=== PATIENT | male | born 1995 | race Caucasian/White ===

== ENCOUNTER 2017-01-25 00:43 | Emergency (ER) | payer OTHER ==
[2017-01-25 01:32] VITALS: BP 147/82; PULSE 98; RESP 18; TEMP 98.8; O2SAT 99
--- NOTE | 2017-01-25 02:00 | ED PDOC ---
HPI: Skin/Bite Injury Time Seen by Provider: 01/25/17 01:24 Chief Complaint (Nursing): Abnormal Skin Integrity Chief Complaint (Provider): Bump with bleeding, left scalp History Per: Patient History/Exam Limitations: no limitations Onset/Duration Of Symptoms: Days (1) Current Symptoms Are (Timing): Still Present Quality Of Symptoms: Painful Severity: Mild Pain Scale Rating Of: 2 Additional Complaint(s): Pt states he felt a raised area on the left scalp. Pt states he noticed it 2 days ago and was picking at it resulting in scabbing. Pt denies similar in the past. Pt denies trauma. Past Medical History Reviewed: Historical Data, Nursing Documentation, Vital Signs Vital Signs: Last Vital Signs Temp 98.8 F 01/25/17 01:27 Pulse 98 H 01/25/17 01:27 Resp 18 01/25/17 01:27 BP 147/82 01/25/17 01:27 Pulse Ox 99 01/25/17 01:27 - Medical History PMH: Gastritis - Surgical History Surgical History: Denies: No Surg Hx - Family History Family History: Denies: No Known Family Hx - Social History Current smoker - smoking cessation education provided: No Drugs: Cannabis - Home Medications Home Medications: Ambulatory Orders Medication Instructions Recorded Pantoprazole [Protonix EC Tab] 20 mg PO DAILY #30 ect 02/25/14 Mupirocin 2% Ointment [Bactroban 1 appl TP BID #1 tube 01/25/17 Ointment] - Allergies Allergies/Adverse Reactions: Allergies Allergy/AdvReac Type Severity Reaction Status Date / Time azithromycin [From Zithromax] Allergy RASH Verified 01/25/17 01:27 Review of Systems ROS Statement: Except As Marked, All Systems Reviewed And Found Negative Constitutional: Negative for: Fever, Chills Skin: Positive for: Other - ECG O2 Sat by Pulse Oximetry: 99 Disposition - Clinical Impression Clinical Impression: Scalp abrasion - Patient ED Disposition Is Patient to be Admitted: No Counseled Patient/Family Regarding: Diagnosis, Need For Followup, Rx Given - Disposition Referrals: [facility] [Outside] Disposition: Routine/Home Disposition Time: 02:15 Condition: GOOD Prescriptions: Mupirocin 2% Ointment [Bactroban Ointment] 1 appl TP BID #1 tube Instructions: Abrasion (ED)
== END 2017-01-25 02:21 | disposition home or self-care (01) ==
LOC: H.ER 00:43
DX: S00.01XA Abrasion of scalp, initial encounter (principal); Y92.89 Other specified places as the place of occurrence of the external cause

== ENCOUNTER 2018-10-16 12:05 | Emergency (ER) | payer SELFPAY ==
[2018-10-16 12:20] VITALS: BP 139/93; PULSE 83; RESP 18; TEMP 98.6; O2SAT 97
[2018-10-16] MEDS ORDERED: Albuterol 0.083% Inhal Sol (2.5 mg/3 mL) UD INH STA (12:30)
[2018-10-16] MEDS ORDERED: Albuterol 0.083% Inhal Sol (2.5 mg/3 mL) UD ONE (12:41)
--- NOTE | 2018-10-16 12:58 | ED PDOC ---
HPI: Chest Pain Time Seen by Provider: 10/16/18 12:23 Chief Complaint (Nursing): Chest Pain Chief Complaint (Provider): Chest Pain History Per: Patient History/Exam Limitations: no limitations Onset/Duration Of Symptoms: Hrs Current Symptoms Are (Timing): Still Present Additional Complaint(s): Patient is a 23 y/o male with a PMHx of gastritis and sleep apnea as a child who claims this morning he woke up coughing with SOB and mid-sternal, non-radiating chest pain. Patient states for the past week his girlfriend, who sleeps in the same bed as him, reports he has been breathing heavy at night. Patient denies fever, hemoptysis, trauma, leg pain or swelling, prolonged leg immobilization, hormonal treatment, and palpitations. Of note, patient is a heavy smoker. PCP: None Provided Past Medical History Reviewed: Historical Data, Nursing Documentation, Vital Signs Vital Signs: Last Vital Signs Temp 98.6 F 10/16/18 12:17 Pulse 83 10/16/18 12:17 Resp 18 10/16/18 12:17 BP 139/93 H 10/16/18 12:17 Pulse Ox 97 10/16/18 12:17 - Medical History PMH: Gastritis Denies: Diabetes, Deep Vein Thrombosis, HTN, Hypercholesterolemia, Pulmonary Embolism Other PMH: Sleep Apnea - Surgical History Surgical History: No Surg Hx - Family History Family History: States: Hypertension Denies: [place] - Social History Current smoker - smoking cessation education provided: Yes Drugs: Denies (cocaine use), Cannabis - Home Medications Home Medications: Ambulatory Orders Medication Instructions Recorded Pantoprazole [Protonix EC Tab] 20 mg PO DAILY #30 ect 02/25/14 Mupirocin 2% Ointment [Bactroban 1 appl TP BID #1 tube 01/25/17 Ointment] Albuterol HFA [Ventolin HFA 90 2 puff IH [id number] PRN #120 puff 10/16/18 mcg/actuation (8 g)] - Allergies Allergies/Adverse Reactions: Allergies Allergy/AdvReac Type Severity Reaction Status Date / Time azithromycin [From Zithromax] Allergy RASH Verified 10/16/18 12:17 Wells Criteria for PE - Wells Criteria for Pulmonary Embolism Clinical Signs and Symptoms of DVT: No P.E is #1 Diagnosis, or Equally Likely: No Heart Rate >100: No Immobilization at least 3 days;Surgery previous 4 weeks: No Previous, objectively diagnosed PE or DVT: No Hemoptysis: No Malignancy w/treatment within 6 months, or palliative: No Total Score: 0 Review of Systems ROS Statement: Except As Marked, All Systems Reviewed And Found Negative Constitutional: Negative for: Fever Cardiovascular: Positive for: Chest Pain (mid-sternal, non-radiating). Negative for: Palpitations Respiratory: Positive for: Cough, Other (heavy breathing). Negative for: Hemoptysis Musculoskeletal: Negative for: Leg Pain (or swelling) Physical Exam - Reviewed Nursing Documentation Reviewed: Yes Vital Signs Reviewed: Yes - Physical Exam Appears: Positive for: No Acute Distress (speaking full sentences) Head Exam: Positive for: ATRAUMATIC, NORMAL INSPECTION, NORMOCEPHALIC Skin: Positive for: Normal Color, Warm, DRY Eye Exam: Positive for: EOMI, Normal appearance, PERRL Neck: Positive for: Normal, Painless ROM, Supple Cardiovascular/Chest: Positive for: Regular Rate, Rhythm. Negative for: Murmur Respiratory: Positive for: Normal Breath Sounds. Negative for: Respiratory Distress Extremity: Negative for: Calf Tenderness (or swelling b/l) Neurological/Psych: Positive for: Alert, Oriented (x3) - ECG O2 Sat by Pulse Oximetry: 97 (RA) Pulse Ox Interpretation: Normal Medical Decision Making Medical Decision Making: Time: 1230 Impression: Dyspnea Plan: CXR Albuterol 2.5 mg INH Peak Flow Pre/Post TX .Pre/Post Treatment PERC - 0 Time: 1300 On reevaluation, good releif of dyspnea. Initial peak flow was 260. Post peak flow was 460. Advised to followup with [facility] for possible sleep study and further evaluation. Patient advised to stop smoking. Scribe Attestation: Documented by Shreyas Montano, acting as a scribe forJames Pormentilla PA-C. Provider Scribe Attestation: All medical record entries made by the Scribe were at my direction and personally dictated by me. I have reviewed the chart and agree that the record accurately reflects my personal performance of the history, physical exam, medical decision making, and the department course for this patient. I have also personally directed, reviewed, and agree with the discharge instructions and disposition. Disposition - Clinical Impression Clinical Impression: Dyspnea - Patient ED Disposition Is Patient to be Admitted: No - Disposition Referrals: [facility] [Outside] Disposition: Routine/Home Disposition Time: 13:15 Condition: IMPROVED Additional Instructions: FOLLOW UP WITH [facility] FOR FURTHER EVALUATION RETURN TO ED IMMEDIATELY IF SYMPTOMS WORSEN STOP SMOKING SHANNAN ASHTON, thank you for letting us take care of you today. Your provider was Camden Peterson MD and you were treated for CHEST PAIN. The emergency medical care you received today was directed at your acute symptoms. If you were prescribed any medication, please fill it and take as directed. It may take several days for your symptoms to resolve. Return to the Emergency Department if your symptoms worsen, do not improve, or if you have any other problems. Please contact your doctor or call one of the physicians/clinics you have been referred to that are listed on the Patient Visit Information form that is included in your discharge packet. Bring any paperwork you were given at discharge with you along with any medications you are taking to your follow up visit. Our treatment cannot replace ongoing medical care by a primary care provider outside of the emergency department. Thank you for allowing the [facility] team to be part of your care today. If you had an X-Ray or CT scan: A Radiologist will review the ED reading if any change in treatment is needed we will contact you. If you had a blood, urine, or wound culture: It will take several days for the results, if any change in treatment is needed we will contact you. If you had an STI test: It will take 48 hours for the results. Please call after 1 week if you have not heard back. Prescriptions: Albuterol HFA [Ventolin HFA 90 mcg/actuation (8 g)] 2 puff IH [id number] PRN #120 puff PRN Reason: Cough Instructions: Smoking: Not Just Harmful to Your Lungs and Heart, Shortness of Breath (Dyspnea) (DC), Quitting Smoking Forms: [facility] ED School/Work Excuse
--- NOTE | 2018-10-16 14:04 | RAD ---
Date of service: 10/16/2018 HISTORY: SOB COMPARISON: No prior. TECHNIQUE: Chest PA and lateral views FINDINGS: LUNGS: No active pulmonary disease. PLEURA: No significant pleural effusion identified. No pneumothorax apparent. CARDIOVASCULAR: No aortic atherosclerotic calcification present. Normal cardiac size. No pulmonary vascular congestion. OSSEOUS STRUCTURES: No significant abnormalities. VISUALIZED UPPER ABDOMEN: Normal. OTHER FINDINGS: None. IMPRESSION: No active disease.
== END 2018-10-16 13:23 | disposition home or self-care (01) ==
LOC: H.ER 12:05
DX: R06.00 Dyspnea, unspecified (principal); F17.200 Nicotine dependence, unspecified, uncomplicated; Z88.1 Allergy status to other antibiotic agents; Z79.899 Other long term (current) drug therapy